=== PATIENT | male | born 1985 | race African-American/Black ===

== ENCOUNTER 2017-08-07 14:55 | Emergency (ER) | payer OTHER ==
[~2017-08-07] VITALS: Ht 180.3 cm; Wt 70.0 kg
[~2017-08-07 14:55] MED LIST: 1-ME1LIQ PO; DICY1TAB26 PO; METO50TA PO; PERC5TAB12 PO; PRED10 PO; PROG1CAP PO; TRAZ50TA4 PO
[2017-08-07 14:58] VITALS: BP 131/73; PULSE 69; RESP 14; TEMP 97.6; O2SAT 100
[2017-08-07] MEDS ORDERED: ACETAMINOPHEN 325 MG TAB PO ONE (15:45)
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
--- NOTE | 2017-08-07 18:11 | RADRPT ---
EXAM DATE/TIME: 08/07/2017 17:41 [facility] COMPARISON: No previous studies available for comparison. INDICATIONS : Pain and difficulty swallowing. MEDICAL HISTORY : None. SURGICAL HISTORY : None. ENCOUNTER: Initial ACUITY: 1 day PAIN SCORE: 3/10 LOCATION: Throat, level of the hyoid. FINDINGS: Two view examination of the soft tissues of the neck demonstrates the hypopharyngeal airway to have a grossly normal configuration. The trachea is midline. No radiopaque foreign bodies are seen. CONCLUSION: Unremarkable examination. Nelson Owens MD on August 07, 2017 at 18:08 Board Certified Radiologist. This report was verified electronically.
[2017-08-07] MEDS ORDERED: MAGICPED SWISH-SWAL (18:20)
== END 2017-08-07 18:57 | disposition home or self-care (01) ==
LOC: NEPD 14:55
DX: J02.9 Acute pharyngitis, unspecified (principal); F17.200 Nicotine dependence, unspecified, uncomplicated
CPT/HCPCS: 70360; 87081; 87880; 99283